=== PATIENT | female | born 1985 | race Caucasian/White ===

== ENCOUNTER 2025-03-23 15:52 | Emergency (ER) | payer OTHER ==
[~2025-03-23] VITALS: Ht 175.3 cm; Wt 98.0 kg
[2025-03-23] MEDS ORDERED: HYDROmorphone HCL 1 MG/ML SYR IV PRN (16:00)
[2025-03-23 16:09] LABS: BASOPHILS 0.7 % (0.1-1.2); EOSINOPHILS 0.7 % (0.7-5.8); LYMPHOCYTES 40.7 % (19.3-51.7); MCH 30.2 PG (25.6-32.2); MCHC 33.0 g/dL (32.2-35.5); MCV 91.5 fL (79.4-94.8); MONOCYTES 7.6 % (4.7-12.5); NEUTROPHILS 50.2 % (34.0-71.1); RBC 4.84 M/uL (3.93-5.22)
[2025-03-23 16:31] LABS: ALCOHOL, MEDICAL <3 mg/dL (<3); ALT (SGPT) 32 U/L (14-59); AST (SGOT) 21 U/L (15-37); GLOMERULAR FILTRATION RATE,EST 86 mL/min (>60); PROTEIN, TOTAL 7.7 g/dL (6.4-8.2); UREA NITROGEN 10 mg/dL (7-18)
[2025-03-23] MEDS ORDERED: MIDAZOLAM HCL 2 MG/2 ML VIAL IV ONE (17:00)
[2025-03-23 17:01] LABS: ABO B; ANTIBODY SCREEN NEGATIVE; RH POSITIVE
[2025-03-23 21:05] VITALS: BP 150/90
== END 2025-03-23 20:59 | disposition home or self-care (01) ==
LOC: ED 15:52
PROVIDERS: Emergency Medicine
DX: M54.6 Pain in thoracic spine (principal); M54.50 Low back pain, unspecified; W18.30XA Fall on same level, unspecified, initial encounter
CPT/HCPCS: 36415; 70450; 71260; 72125; 72146; 72148; 74177; 80053; 80307; 85025; 86850; 86900; 86901; 96374; 99284-25; G0480; J2250; Q9967